=== PATIENT | male | born 1935 | race Caucasian/White ===

== ENCOUNTER 2017-03-01 11:00 | Inpatient (IN) | payer MEDICARE, OTHER ==
[~2017-03-01] VITALS: Ht 177.8 cm; Wt 71.8 kg
--- NOTE | ~2017-03-01 | DS ---
PATIENT'S NAME: PRANEETH POPE [facility] AGE: 81 Y [address] ROOM: [place] [id number] LOCATION: [facility] ADMIT DATE: 03/14/2017 Discharge Summary DISCHARGE DATE: 03/16/2017 FAMILY PHYSICIAN: Sotero Duncan MD ATTENDING PHYSICIAN: Ottoniel Minaya PRIMARY DIAGNOSIS: Degenerative joint disease of the left knee. SECONDARY DIAGNOSES: 1. Iron deficiency anemia. 2. History of valvular heart disease. 3. Hypothyroidism. 4. Atrial fibrillation. 5. Hypertension. 6. Coronary artery disease. 7. Hyperlipidemia. 8. chronic obstructive pulmonary disease. 9. Congestive heart failure. 10. Chronic kidney disease stage 4. 11. Anemia. 12. Venous insufficiency. PROCEDURE PERFORMED: Left total knee arthroplasty. HISTORY: The patient is an 81-year-old male, who presents with advanced left knee degenerative joint disease and associated severely compromised activities of daily living. The patient has decided to proceed with total knee arthroplasty after having been thoroughly counseled regarding the risks, benefits, limitations and alternatives. Please refer to the outpatient clinic notes and admission history and physical for this patient. HOSPITAL COURSE: The patient underwent a left total knee arthroplasty on 03/14/2017 without complications. General endotracheal anesthesia plus subcutaneous and periarticular local anesthesia was utilized. The patient received 24 hours of perioperative prophylactic antibiotics and remained hemodynamically stable, neurovascularly intact throughout the entire hospital course. The postoperative prophylactic deep venous thrombosis prophylaxis consisted of Xarelto, early mobilization and pneumatic compression devices. Daily physical therapy for gait training, transfer training range of motion and quadriceps isometric exercises were received. The patient progressed well in physical therapy. On the date of discharge, 03/16/2017, the incision at the knee was healing well and showed no signs of infection. DISPOSITION: Home. PATIENT'S NAME: [facility] AGE: 81 Y [address] ROOM: [address] [address] LOCATION: [facility] ADMIT DATE: 03/14/2017 Discharge Summary DISCHARGE DATE: 03/16/2017 FAMILY PHYSICIAN: Sotero Duncan MD ATTENDING PHYSICIAN: Ottoniel Minaya DISCHARGE ACTIVITY: The patient is to bear weight as tolerated with range of motion and quadriceps isometric exercises as instructed. The operative extremity is to be elevated at least 90% of the day. There is to be sterile 4x4 gauze dressings to the incision daily. Dr. Minaya is to be notified immediately if there is any increased pain, fevers, chills erythema or drainage. DISCHARGE MEDICATIONS: 1. Xarelto 15 mg one tab p.o. daily for postoperative DVT prophylaxis and for atrial fibrillation anticoagulant. 2. Naturita 5/325 mg 1 to 2 tabs p.o. every 6 hours p.r.n. for pain. 3. He was then instructed to continue all his other preadmission medications as instructed by his internal medicine doctor. FOLLOWUP: Followup appointment is to be with Dr. Minaya's office 03/21/2017 for his initial postoperative evaluation with x-rays of the left knee and suture removal at that time. ELAINA ABEBE PA-C FOR MD PAVAN EDWARDS/neha /[id number] d: 03/23/17 0300 t: 03/28/17 1800, DISCHARGE SUMMARY
--- NOTE | ~2017-03-01 | OR ---
PATIENT'S NAME: JOHNY LOGAN [facility] AGE: 81 Y [address] ROOM: [address] [address] LOCATION: [facility] ADMIT DATE: 03/14/2017 OR/Procedure Report DISCHARGE DATE: FAMILY PHYSICIAN: Sotero Duncan MD ATTENDING PHYSICIAN: TIARRA VINSON SURGEON: Tiarra Vinson MD REAL ESTATE TRANSACTION COORDINATOR: Harsha Morel CST/LUIS and Tiarra Griffin. DATE OF PROCEDURE: 03/14/2017 PRE-OP DIAGNOSIS: Degenerative joint disease left knee. POST-OP DIAGNOSES: 1. Degenerative joint disease left knee. 2. Chondrocalcinosis. OPERATION: Left total knee arthroplasty with computer navigation. ANESTHESIA: General endotracheal anesthesia plus subcutaneous and periarticular local anesthesia (ropivacaine with epinephrine and Toradol). ESTIMATED BLOOD LOSS: Less than 10 mL. DRAIN: None. SPECIMEN: None. COMPLICATIONS: None. IMPLANT SYSTEM: [employer]croft Triathlon. 1. Size 5 left posterior stabilized femoral component. 2. Size 4 universal modular tibial baseplate. 3. 13 mm posterior stabilized size 4 x 3 tibial polyethylene insert. 4. 35 mm oval x3 patella component. INDICATIONS FOR SURGERY: Johny Logan is an 81-year-old male who presents with advanced left knee degenerative joint disease and associated severely compromised activities of daily living. The patient has decided to proceed with knee replacement after having been thoroughly counseled regarding the associated risks, benefits, and limitations. We have specifically reviewed the risks and implications of infection, deep venous thrombosis, pulmonary embolism, mortality, neurovascular complications, blood transfusion (and associated potential for disease transmission or transfusion reaction), stiffness, instability, mechanical deterioration of the components (due to wear and or loosening), and the potential need for revision. We have also PATIENT'S NAME: TOSHIA [facility] AGE: 81 Y [address] ROOM: [address] [address] LOCATION: [facility] ADMIT DATE: 03/14/2017 OR/Procedure Report DISCHARGE DATE: FAMILY PHYSICIAN: Sotero Duncan MD ATTENDING PHYSICIAN: TIARRA VINSON emphasized the importance of active involvement and compliance with post- operative physical therapy as a means of optimizing range of motion and functional recovery. Informed consent has been granted. DESCRIPTION OF PROCEDURE: The patient was positioned supine after administration of anesthesia and prophylactic antibiotics. A well-padded pneumatic tourniquet was placed around the left proximal thigh, and the left lower extremity was prepped and draped with vigilant sterile technique. The patient's name as well as the intended operative side and procedure were confirmed with a verbal time-out involving myself, the circulating nurse, the scrub nurse, and the anesthesiologist. Examination under anesthesia demonstrated no active lesions or masses. There was a large effusion. There was no erythema. There was no abnormal warmth. There was severe quadriceps atrophy. Range of motion under anesthesia was from full extension to 130 degrees of flexion. There was 2 mm of middle collateral ligament laxity. The left lower extremity was elevated and exsanguinated with an Esmarch wrap, and the pneumatic tourniquet was inflated to 300mmHg. The knee was approached through a longitudinal midline incision. A medial parapatellar arthrotomy was performed and the patella was everted. Examination of the joint space demonstrated a large amount of benign appearing translucent synovial fluid. There was generalized nonproliferative synovitis. The anterior cruciate ligament was intact but attenuated. The posterior cruciate ligament was intact. There were no loose bodies. There was extensive chondrocalcinosis throughout the trochlear, patellar, lateral meniscal remnant, medial femoral condyle, and anterior half of the medial tibial plateau. There was 1 cm osteophyte at the supralateral margin of the femoral trochlear. There was a large osteophyte at the lateral margin of the patella. There was small osteophyte at the medial and lateral margins of the femoral trochlear. There was 1 cm region of full-thickness articular cartilage loose at the lateral facet at the patella. There was extensive high-grade partial-thickness articular cartilage loss throughout the majority of the remainder of the patella. There were moderate grade 3 degenerative changes at the medial femoral condyle and the medial tibial plateau. There was a small osteophyte at the anterior aspect of the medial tibial plateau. There were large osteophytes at the medial and lateral femoral condyles. There was full-thickness loss of articular cartilage throughout the lateral tibial plateau and the posterior lateral two-thirds of the lateral femoral condyle. There was a large displaced flap tear at the posterior horn of the medial meniscus. There was a small peripheral degenerative remnant of the lateral meniscus. Remnants of the menisci and cruciate ligaments were excised. The [employer] [facility] PATIENT'S NAME: JOHNY LOGAN [facility] AGE: 81 Y [address] ROOM: [address] [place] [id number] LOCATION: [facility] ADMIT DATE: 03/14/2017 OR/Procedure Report DISCHARGE DATE: FAMILY PHYSICIAN: Sotero Duncan MD ATTENDING PHYSICIAN: TIARRA VINSON computer navigation femoral tracker was pinned in place at the distal aspect of the femoral trochlea. Absence of motion between the femur and the tracking device was confirmed manually and visually. Femoral osseous landmarks were obtained in order to calibrate the computer navigation system. Landmarks included the center of rotation of the ipsilateral hip, the center-point of the distal femur, the femoral AP axis, 57 points on the medial femoral condyle articular surface, and 57 points on the lateral femoral condyle articular surface. The [employer] computer navigation system was subsequently utilized to position the distal femoral resection block such that the distal femoral resection was performed perfectly perpendicular to the femoral mechanical axis. The distal femoral resection was performed with a [employer] oscillating saw. The [employer] computer navigation tibial tracker was pinned in place at the anterior aspect of the tibial plateau. Absence of motion between the tibia and the tracking device was confirmed manually and visually. Tibial osseous landmarks were obtained in order to calibrate the computer navigation system. Landmarks included the center-point of the tibial plateau, the AP tibial axis, 57 points on the medial tibial plateau articular surface, 57 points on the lateral tibial plateau articular surface, the medial malleolus, and the lateral malleolus. The [employer] computer navigation system was subsequently utilized to position the proximal tibial resection block such that the proximal tibial resection was performed perfectly perpendicular to the tibial mechanical axis. The proximal tibial resection was performed with a [employer] oscillating saw. Perpendicularity of the tibial resection with respect to the tibial shaft axis was reconfirmed by inserting a spacer-block attached to an extramedullary guide malika. External rotation of the anterior and posterior femoral resections was set parallel to the epicondylar axis and carefully adjusted in order to create a rectangular flexion gap. The box resection was performed with a reciprocating saw. Anterior and posterior chamfer resections were performed with the oscillating saw. Posterior condyle osteophytes were excised with an osteotome. All other osteophytes were excised with a rongeur. Resection of all remnants of the menisci was reconfirmed. Flexion and extension gaps were confirmed to be symmetric and well balanced with a spacer-block technique. The patella resection was performed with an oscillating saw such that the composite thickness of the reconstructed patella was equivalent to the thickness of the marshall patella. Patella tracking was confirmed to be optimal. Patellar tracking was optimal, and there was no need for a lateral retinacular release. Release of the popliteus tendon was necessary in order to balance the flexion gap. Partial release of the iliotibial band was also necessary to balance the extension gap. PATIENT'S NAME: JOHNY LOGAN [facility] AGE: 81 Y [address] ROOM: [place] [address] LOCATION: [facility] ADMIT DATE: 03/14/2017 OR/Procedure Report DISCHARGE DATE: FAMILY PHYSICIAN: Sotero Duncan MD ATTENDING PHYSICIAN: TIARRA VINSON All trial components were removed and all prepared osseous surfaces were thoroughly irrigated with pulsatile saline lavage and dried prior to cementing all three components in a single stage using [employer] Simplex cement containing pre-mixed tobramycin. All extruded excess cement was removed. The entire joint space was thoroughly inspected and thoroughly irrigated with bacteriostatic pulsatile saline lavage to assure that there was no residual debris of any sort. Final range of motion was from a full extension with (no passive hyperextension) to 130 degrees of flexion. Patella tracking was reconfirmed to be optimal. There was excellent anteroposterior stability at 90 degrees of flexion. There was 1 mm of medial lift-off to valgus stress in full extension. There was 0 mm of lateral lift-off to varus stress in full extension. The arthrotomy was closed with multiple simple and [id number] interrupted #1 Vicryl. Subcutaneous tissues were thoroughly re-irrigated with bacteriostatic pulsatile saline lavage. Subcutaneous tissues were re- approximated with simple buried interrupted #0 Vicryl sutures. The skin was closed with simple buried interrupted 2-0 Vicryl sutures followed by surgical mauri. The dressing consisted of Xeroform gauze, 4x4 gauze, ABD pads and two 6-inch Reagan Wraps. There were no intra-operative complications. MD MANUEL EDWARDS/neha /[id number] d: 03/14/17 1338 t: 03/19/17 1202, OPERATIVE SUMMARY
[~2017-03-01 11:00] MED LIST: AMOXICILLIN500 MG PO; ASPIRIN LO-DOSE81 MG PO; BETAPACE (GENER80 MG PO; CITRACAL+D(315M1 TAB PO; COREG12.5 MG PO; COUMADIN ** IA5 MG PO; FISH OIL 500 M1 EAC3 PO; FLOMAX0.4 MG PO; INSPRA25 MG PO; LASIX40 MG PO; LEVOTHROID (S150 MCG PO; NIASPAN500 MG PO; POTASSIUM CHLO20 ME1 PO; PRESERVISION A1 EACH PO; PRIMIDONE250 MG PO; PROBIOTIC1 EAC2 PO; THERA-VITE W/ B1 TAB PO; VITAMIN D1000 UNIT PO; XARELTO15 MG PO; ZESTRIL2.5 MG PO; ZOCOR20 MG PO
[2017-03-15 05:34] LABS: HEMATOCRIT 31.7 % (33.0-50.0); HEMOGLOBIN 10.5 g/dL (11.0-16.0)
[2017-03-16] MEDS ORDERED: TYLENOL EXTRA500 MG PO (10:16)
[2017-03-16] MEDS ORDERED: COLACE100 MG PO (10:18)
[2017-03-16] MEDS ORDERED: MIRALAX17 GM PO (10:21)
== END 2017-03-16 14:50 | disposition disaster alternative care site (69) | DRG 470 ==
LOC: G3N 03-14 05:23
PROVIDERS: ADMIT Orthopaedic Surgery
PROC: 0SRD0J9 Replacement of Left Knee Joint with Synthetic Substitute, Cemented, Open Approach (ICD-10-PCS; principal; 2017-03-14)
DX: M17.12 Unilateral primary osteoarthritis, left knee (principal); N18.4 Chronic kidney disease, stage 4 (severe); G62.9 Polyneuropathy, unspecified; I07.1 Rheumatic tricuspid insufficiency; J44.9 Chronic obstructive pulmonary disease, unspecified; I13.0 Hypertensive heart and chronic kidney disease with heart failure and stage 1 through stage 4 chronic kidney disease, or unspecified chronic kidney disease; I48.0 Paroxysmal atrial fibrillation; I50.42 Chronic combined systolic (congestive) and diastolic (congestive) heart failure; E03.9 Hypothyroidism, unspecified; E78.5 Hyperlipidemia, unspecified; M11.262 Other chondrocalcinosis, left knee; D50.9 Iron deficiency anemia, unspecified; I25.10 Atherosclerotic heart disease of native coronary artery without angina pectoris; I87.2 Venous insufficiency (chronic) (peripheral); I25.5 Ischemic cardiomyopathy; I34.0 Nonrheumatic mitral (valve) insufficiency; N40.0 Benign prostatic hyperplasia without lower urinary tract symptoms; Z66 Do not resuscitate; Z79.82 Long term (current) use of aspirin; Z95.2 Presence of prosthetic heart valve; Z79.01 Long term (current) use of anticoagulants; Z95.810 Presence of automatic (implantable) cardiac defibrillator
CPT/HCPCS: C1713; C1776; J0690; J1100; J1885; J2795; J3010; J7120

== ENCOUNTER → 2017-03-03 | Outpatient (CLI) | payer MEDICARE, OTHER ==
[~2017-03-03] MED LIST changes: +COLACE100 MG PO; +MIRALAX17 GM PO; +TYLENOL EXTRA500 MG PO
== END | disposition disaster alternative care site (69) ==
LOC: GNJRC 10:32
DX: Z01.812 Encounter for preprocedural laboratory examination (principal); M17.12 Unilateral primary osteoarthritis, left knee